=== PATIENT | female | born 2000 | race American Indian/Alaskan Native ===

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

== ENCOUNTER 2019-11-24 18:40 | Emergency (ER) | payer MEDICAID, OTHER ==
[2019-11-24 19:10] VITALS: BP 128/71; PULSE 92
== END 2019-11-24 19:00 | disposition left against medical advice (07) ==
LOC: DL.ED 18:40
DX: Z53.21 Procedure and treatment not carried out due to patient leaving prior to being seen by health care provider (principal)

== ENCOUNTER 2019-12-22 18:19 | Emergency (ER) | payer MEDICAID ==
[2019-12-22 19:18] VITALS: BP 112/59; PULSE 75
--- NOTE | 2019-12-22 19:31 | EDM.PDOC ---
ED HPI GENERAL MEDICAL PROBLEM - General Chief Complaint: Genitourinary Problem Stated Complaint: <20 WEEKS PREG/PEEING BLOOD Time Seen by Provider: 12/22/19 19:00 Source of Information: Reports: Patient History Limitations: Reports: No Limitations - History of Present Illness INITIAL COMMENTS - FREE TEXT/NARRATIVE: ED with c/o vaginal bleeding, passing clots intermittently when voiding. Lmp sometime in october. Positive test last week. . Some cramping. No vaginal discharge, no known fever or chills, . No nausea or vomiting - Related Data Allergies Allergy/AdvReac Type Severity Reaction Status Date / Time No Known Allergies Allergy Verified 12/22/19 19:13 Home Meds: Home Meds Citalopram Hydrobromide [Celexa] 20 mg PO DAILY 01/15/18 [History] Ferrous Sulfate 325 mg PO DAILY 01/15/18 [History] Lisdexamfetamine Dimesylate [Vyvanse] 10 mg PO DAILY 01/15/18 [History] #103/Iron Fumarate/Fa [ ] 1 each PO DAILY 01/15/18 [History] Acetaminophen [Tylenol] 650 mg PO Q4H PRN #30 tablet 01/16/18 [Rx] hydrOXYzine pamoate [Vistaril] 25 - 50 mg PO Q8H PRN #30 cap 01/16/18 [Rx] Acetaminophen [Tylenol] 650 mg PO Q6H PRN tablet 01/18/18 [Rx] Ibuprofen [Motrin] 800 mg PO Q8H PRN tablet 01/18/18 [Rx] Past Medical History - Past Health History Medical/Surgical History: Denies Medical/Surgical History HEENT History: Reports: None Cardiovascular History: Reports: None Respiratory History: Reports: None Gastrointestinal History: Reports: None Genitourinary History: Reports: None COMMUNICATIONS EDITOR History: Reports: Musculoskeletal History: Reports: None Neurological History: Reports: None Psychiatric History: Reports: Anxiety, Depression, Suicide Attempt, Suicidal Ideation Endocrine/Metabolic History: Reports: None Hematologic History: Reports: Anemia Immunologic History: Reports: None Oncologic (Cancer) History: Reports: None Dermatologic History: Reports: None - Infectious Disease History Infectious Disease History: Reports: None - Past Surgical History Head Surgeries/Procedures: Reports: None HEENT Surgical History: Reports: Other (See Below) Other HEENT Surgeries/Procedures: wisdom teeth extraction Social & Family History - Family History Family Medical History: Noncontributory Other Oncologic Family History: Mother Way[place] 2013, pt unsure of details - Caffeine Use Caffeine Use: Reports: Coffee, Energy Drinks, Soda - Sexual History Sexual History: Reports: None - Living Situation & Occupation Living situation: Reports: Other Occupation: Student ED ROS GENERAL - Review of Systems Review Of Systems: Comprehensive ROS is negative, except as noted in HPI. ED EXAM, RENAL/ - Physical Exam Exam: See Below Exam Limited By: No Limitations General Appearance: Alert, No Apparent Distress Eye Exam: Bilateral Eye: EOMI Ears: Normal External Exam, Normal TMs Nose: Normal Inspection Throat/Mouth: Normal Inspection Head: Atraumatic, Normocephalic Neck: Normal Inspection Respiratory/Chest: No Respiratory Distress, Lungs Clear, Normal Breath Sounds Cardiovascular: Normal Peripheral Pulses, Regular Rate, Rhythm GI/Abdominal: Normal Bowel Sounds, Soft. No: Distended (Female) Exam: No: Enlarged Uterus, Fundal Height Back Exam: Normal Inspection Neurological: Alert, Oriented, Normal Cognition Psychiatric: Anxious, Other (restless) Skin Exam: Warm, Dry, Intact, Normal Color Course - Vital Signs Last Recorded V/S: Last Vital Signs Temp 98.6 F 12/22/19 19:13 Pulse 75 12/22/19 19:13 Resp 16 12/22/19 19:13 BP 112/59 L 12/22/19 19:13 Pulse Ox 97 12/22/19 19:13 - Orders/Labs/Meds Labs: Laboratory Tests 12/22/19 12/22/19 12/22/19 Range/Units 18:23 18:23 18:23 WBC (5.0-10.0) 10^3/uL RBC (4.2-5.4) 10^6/uL Hgb (12.0-16.0) g/dL Hct (37.0-47.0) % MCV (80-100) fL MCH (27.0-34.0) pg MCHC (33.0-35.0) g/dL Plt Count (150-450) 10^3/uL Neut % (Auto) (42.2-75.2) % Lymph % (Auto) (20.5-50.1) % [place] % (Auto) (2-8) % Eos % (Auto) (1.0-3.0) % Baso % (Auto) (0.0-1.0) % Sodium (136-145) mmol/L Potassium (3.5-5.1) mmol/L Chloride (98-107) mmol/L Carbon Dioxide (21-32) mmol/L Anion Gap (7-13) mEq/L BUN (7-18) mg/dL Creatinine (0.55-1.02) mg/dL Est Cr Clr Drug Dosing mL/min Estimated GFR (MDRD) BUN/Creatinine Ratio (No establ ref range) Glucose (74-99) mg/dL Calcium (8.5-10.1) mg/dL Total Bilirubin (0.2-1.0) mg/dL AST (15-37) U/L ALT (14-59) U/L Alkaline Phosphatase (46-116) U/L Total Protein (6.4-8.2) g/dL Albumin (3.4-5.0) g/dL Globulin Albumin/Globulin Ratio HCG, Quant (0-6) mIU/mL Urine Color Yellow (YELLOW) Urine Appearance Slightly cloudy (CLEAR) Urine pH 6.5 (5.0-9.0) Ur Specific [place] 1.020 (1.005-1.030) Urine Protein Negative (NEGATIVE) Urine Glucose (UA) Negative (NEGATIVE) Urine Ketones Negative (NEGATIVE) Urine Occult Blood Trace-intact H (NEGATIVE) Urine Nitrite Negative (NEGATIVE) Urine Bilirubin Negative (NEGATIVE) Urine Urobilinogen 0.2 (0.2-1.0) mg/dL Ur Leukocyte Esterase Trace H (NEGATIVE) Urine RBC 0-5 /HPF Urine WBC 10-20 H (0-5/HPF) /HPF Ur Epithelial Cells Moderate H (NOT SEEN) /HPF Amorphous Sediment Rare (NOT SEEN) /HPF Urine Bacteria Few (0-FEW/HPF) /HPF Urine Mucus Few H (NOT SEEN) /LPF Urine HCG, Qual Positive Urine Opiates Screen Negative (NEGATIVE) Ur Oxycodone Screen Negative (NEGATIVE) Urine Methadone Screen Negative (NEGATIVE) Ur Barbiturates Screen Negative (NEGATIVE) U Tricyclic Antidepress Negative (NEGATIVE) Ur Phencyclidine Scrn Negative (NEGATIVE) Ur Amphetamine Screen Negative (NEGATIVE) U Methamphetamines Scrn Positive H (NEGATIVE) Urine MDMA Screen Negative (NEGATIVE) U Benzodiazepines Scrn Negative (NEGATIVE) Urine Cocaine Screen Negative (NEGATIVE) U Marijuana (THC) Screen Negative (NEGATIVE) 12/22/19 12/22/19 12/22/19 Range/Units 19:19 19:19 19:19 WBC 7.1 (5.0-10.0) 10^3/uL RBC 3.98 L (4.2-5.4) 10^6/uL Hgb 11.4 L D (12.0-16.0) g/dL Hct 34.9 L (37.0-47.0) % MCV 87.7 (80-100) fL MCH 28.6 (27.0-34.0) pg MCHC 32.7 L (33.0-35.0) g/dL Plt Count 234 D (150-450) 10^3/uL Neut % (Auto) 62.0 (42.2-75.2) % Lymph % (Auto) 26.0 (20.5-50.1) % [place] % (Auto) 9.3 H (2-8) % Eos % (Auto) 2.4 (1.0-3.0) % Baso % (Auto) 0.3 (0.0-1.0) % Sodium 137 (136-145) mmol/L Potassium 3.8 (3.5-5.1) mmol/L Chloride 104 (98-107) mmol/L Carbon Dioxide 26 (21-32) mmol/L Anion Gap 10.8 (7-13) mEq/L BUN 7 (7-18) mg/dL Creatinine 0.53 L (0.55-1.02) mg/dL Est Cr Clr Drug Dosing 128.28 mL/min Estimated GFR (MDRD) > 60 BUN/Creatinine Ratio 13.2 (No establ ref range) Glucose 77 (74-99) mg/dL Calcium 8.2 L (8.5-10.1) mg/dL Total Bilirubin 0.2 (0.2-1.0) mg/dL AST 9 L (15-37) U/L ALT 19 (14-59) U/L Alkaline Phosphatase 76 (46-116) U/L Total Protein 5.9 L (6.4-8.2) g/dL Albumin 3.2 L (3.4-5.0) g/dL Globulin 2.7 Albumin/Globulin Ratio 1.19 HCG, Quant [id number] H (0-6) mIU/mL Urine Color (YELLOW) Urine Appearance (CLEAR) Urine pH (5.0-9.0) Ur Specific [place] (1.005-1.030) Urine Protein (NEGATIVE) Urine Glucose (UA) (NEGATIVE) Urine Ketones (NEGATIVE) Urine Occult Blood (NEGATIVE) Urine Nitrite (NEGATIVE) Urine Bilirubin (NEGATIVE) Urine Urobilinogen (0.2-1.0) mg/dL Ur Leukocyte Esterase (NEGATIVE) Urine RBC /HPF Urine WBC (0-5/HPF) /HPF Ur Epithelial Cells (NOT SEEN) /HPF Amorphous Sediment (NOT SEEN) /HPF Urine Bacteria (0-FEW/HPF) /HPF Urine Mucus (NOT SEEN) /LPF Urine HCG, Qual Urine Opiates Screen (NEGATIVE) Ur Oxycodone Screen (NEGATIVE) Urine Methadone Screen (NEGATIVE) Ur Barbiturates Screen (NEGATIVE) U Tricyclic Antidepress (NEGATIVE) Ur Phencyclidine Scrn (NEGATIVE) Ur Amphetamine Screen (NEGATIVE) U Methamphetamines Scrn (NEGATIVE) Urine MDMA Screen (NEGATIVE) U Benzodiazepines Scrn (NEGATIVE) Urine Cocaine Screen (NEGATIVE) U Marijuana (THC) Screen (NEGATIVE) Departure - Departure Time of Disposition: 21:15 Disposition: Against Medical Advice 07 Condition: Good Clinical Impression: First-trimester bleeding, Positive urine drug screen - Discharge Information *PRESCRIPTION DRUG MONITORING PROGRAM REVIEWED*: No *COPY OF PRESCRIPTION DRUG MONITORING REPORT IN PATIENT JOSE ALBERTO: No Forms: ED Department Discharge
[2019-12-22 19:45] LABS: ANION GAP 10.8 mEq/L (7-13); CHLORIDE,CL 104 mmol/L (98-107); SODIUM,NA 137 mmol/L (136-145)
--- NOTE | 2019-12-22 21:29 | US ---
PROCEDURE INFORMATION: Exam: US , Limited Exam date and time: 12/22/2019 8:47 PM Age: 19 years old Clinical indication: Lmp or gestational age (in weeks): 7 wks, 5 days; Other: Bleeding; ; Additional info: Spotting, cramping unsure accurate dates TECHNIQUE: Imaging protocol: Real-time ultrasound of the maternal uterus with image documentation. Exam focused on the clinical indication. COMPARISON: No relevant prior studies available. FINDINGS: There is single live intrauterine with embryonic heart rate 1 5 0 bpm. [place]-rump length measures 1.4 cm which dates at 7 week 5 day. There is small subchorionic hemorrhage along upper uterus. No adnexal masses or free fluid. IMPRESSION: Single live intrauterine approximately 7 week 5 day gestational age. Small subchorionic hemorrhage
== END 2019-12-22 21:13 | disposition left against medical advice (07) ==
LOC: DL.ED 18:19
DX: O20.9 Hemorrhage in early pregnancy, unspecified (principal); O99.89 Other specified diseases and conditions complicating pregnancy, childbirth and the puerperium; R82.998 Other abnormal findings in urine; O99.341 Other mental disorders complicating pregnancy, first trimester; F41.9 Anxiety disorder, unspecified; F32.9 Major depressive disorder, single episode, unspecified; Z79.899 Other long term (current) drug therapy; Z3A.01 Less than 8 weeks gestation of pregnancy
CPT/HCPCS: 36415; 76815; 80053; 80305-QW; 81001; 81025; 84702; 85025; 87086; 99283; 99284-25

== ENCOUNTER 2020-01-25 02:30 | Emergency (ER) | payer MEDICAID ==
[2020-01-25 02:54] VITALS: BP 135/65; PULSE 144
--- NOTE | 2020-01-25 03:01 | EDM.PDOC ---
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 The patient reports her pain started about 50 minutes prior to her arrival in the ED. The patient reports she has been feeling like she is "burning up inside" today. The patient reports she is approximately [address] Negron for her care. The patient reports she did see Dr. Negron 3-4 days ago and "everything was fine". The patient denies any drug or alcohol use. Onset: Today Onset Date: 01/25/20 Onset Time: 02:00 Duration: Intermittent Location: Reports: Abdomen Quality: Reports: Ache, Sharp Severity: Moderate Improves with: Reports: None Worsens with: Reports: None Context: Reports: Other Associated Symptoms: Reports: No Other Symptoms Epigastric Pain Score (Numeric/FACES): 8 - Related Data Allergies Allergy/AdvReac Type Severity Reaction Status Date / Time No Known Allergies Allergy Verified 12/22/19 19:13 Home Meds: Home Meds #103/Iron Fumarate/Fa [ ] 1 each PO DAILY 01/15/18 [History] Acetaminophen [Tylenol] 650 mg PO Q4H PRN #30 tablet 01/16/18 [Rx] Acetaminophen [Tylenol] 650 mg PO Q6H PRN tablet 01/18/18 [Rx] Ibuprofen [Motrin] 800 mg PO Q8H PRN tablet 01/18/18 [Rx] Past Medical History - Past Health History Medical/Surgical History: Denies Medical/Surgical History HEENT History: Reports: None Cardiovascular History: Reports: None Respiratory History: Reports: None Gastrointestinal History: Reports: None Genitourinary History: Reports: None FISH NET STRINGER History: Reports: Other FISH NET STRINGER History: Musculoskeletal History: Reports: None Neurological History: Reports: None Psychiatric History: Reports: Anxiety, Depression, Suicide Attempt, Suicidal Ideation Endocrine/Metabolic History: Reports: None Hematologic History: Reports: Anemia Immunologic History: Reports: None Oncologic (Cancer) History: Reports: None Dermatologic History: Reports: None - Infectious Disease History Infectious Disease History: Reports: None - Past Surgical History Head Surgeries/Procedures: Reports: None HEENT Surgical History: Reports: Other (See Below) Other HEENT Surgeries/Procedures: wisdom teeth extraction Social & Family History - Family History Family Medical History: Noncontributory Other Oncologic Family History: Mother Maximo 2014, pt unsure of details - Caffeine Use Caffeine Use: Reports: Coffee, Energy Drinks, Soda - Sexual History Sexual History: Reports: None - Living Situation & Occupation Living situation: Reports: Other Occupation: Student ED ROS GENERAL - Review of Systems Review Of Systems: Comprehensive ROS is negative, except as noted in HPI. ED EXAM, GI/ABD - Physical Exam Exam: See Below Exam Limited By: No Limitations General Appearance: Alert, WD/WN, Anxious, Moderate Distress Eyes: Bilateral: Normal Appearance, EOMI Ears: Normal External Exam, Normal Canal, Hearing Grossly Normal, Normal TMs Nose: Normal Inspection, Normal Mucosa, No Blood Throat/Mouth: Normal Inspection, Normal Lips, Normal Teeth, Normal Gums, Normal Oropharynx, Normal Voice, No Airway Compromise Head: Atraumatic, Normocephalic Neck: Normal Inspection, Supple, Non-Tender, Full Range of Motion Respiratory/Chest: No Respiratory Distress, Lungs Clear, Normal Breath Sounds, No Accessory Muscle Use, Chest Non-Tender Cardiovascular: Normal Peripheral Pulses, No Edema, No Gallop, No JVD, No Murmur, No Rub, Tachycardia GI/Abdominal Exam: Normal Bowel Sounds, No Organomegaly, No Distention, No Abnormal Bruit, No Mass, Pelvis Stable, Tender (diffuse ) (Female) Exam: Deferred Rectal (Female) Exam: Deferred Back Exam: Normal Inspection, Full Range of Motion, NT Extremities: Normal Inspection, Normal Range of Motion, Non-Tender, Normal Capillary Refill, No Pedal Edema Neurological: Alert, Oriented, CN II-XII Intact, Normal Cognition, Normal Gait, Normal Reflexes, No Motor/Sensory Deficits Psychiatric: Anxious Skin Exam: Warm, Dry, Intact, Normal Color, No Rash Lymphatic: No Adenopathy Course - Vital Signs Last Recorded V/S: Last Vital Signs Temp 36.3 C 01/25/20 02:52 Pulse 144 H 01/25/20 02:52 Resp 20 01/25/20 02:52 BP 135/65 01/25/20 02:52 Pulse Ox 97 01/25/20 02:52 - Orders/Labs/Meds Orders: Active Orders 24 hr Category Date Time Status DRUG SCREEN URINE BIORAD [URCHEM] Stat Lab 01/25/20 02:37 Ordered HCG QUALITATIVE,URINE [URCHEM] Stat Lab 01/25/20 02:37 Ordered HCG QUANTITATIVE [CHEM] Stat Lab 01/25/20 02:45 Received UA W/GILBERTO RFLX IF INDICATED [URIN] Stat Lab 01/25/20 02:37 Ordered Labs: Laboratory Tests 01/25/20 01/25/20 Range/Units 02:45 02:45 WBC 10.8 H (5.0-10.0) 10^3/uL RBC 4.18 L (4.2-5.4) 10^6/uL Hgb 11.5 L (12.0-16.0) g/dL Hct 34.3 L (37.0-47.0) % MCV 82.1 D (80-100) fL MCH 27.5 (27.0-34.0) pg MCHC 33.5 (33.0-35.0) g/dL Plt Count 337 D (150-450) 10^3/uL Neut % (Auto) 63.2 (42.2-75.2) % Lymph % (Auto) 25.2 (20.5-50.1) % Crawford % (Auto) 10.5 H (2-8) % Eos % (Auto) 0.7 L (1.0-3.0) % Baso % (Auto) 0.4 (0.0-1.0) % Sodium 136 (136-145) mmol/L Potassium 3.5 (3.5-5.1) mmol/L Chloride 101 (98-107) mmol/L Carbon Dioxide 23 (21-32) mmol/L Anion Gap 15.5 H (7-13) mEq/L BUN 10 (7-18) mg/dL Creatinine 0.63 (0.55-1.02) mg/dL Est Cr Clr Drug Dosing 102.00 mL/min Estimated GFR (MDRD) > 60 BUN/Creatinine Ratio 15.9 (No establ ref range) Glucose 93 (74-99) mg/dL Calcium 8.5 (8.5-10.1) mg/dL Total Bilirubin 0.4 (0.2-1.0) mg/dL AST 21 (15-37) U/L ALT 24 (14-59) U/L Alkaline Phosphatase 86 (46-116) U/L Total Protein 7.4 (6.4-8.2) g/dL Albumin 3.5 (3.4-5.0) g/dL Globulin 3.9 Albumin/Globulin Ratio 0.9 Departure - Departure Time of Disposition: 03:23 Disposition: Against Medical Advice 07 Condition: Undetermined Clinical Impression: Abdominal pain Qualifiers: Abdominal location: unspecified location Qualified Code(s): R10.9 - Unspecified abdominal pain - Discharge Information *PRESCRIPTION DRUG MONITORING PROGRAM REVIEWED*: Not Applicable *COPY OF PRESCRIPTION DRUG MONITORING REPORT IN PATIENT JOSE ALBERTO: Not Applicable Care Plan Goals: After being in the ED for a short amount of time, the patient wanted to go outside to see her boyfriend. The patient did not return for any additional care or assessment. Sepsis Event Note (ED) - Evaluation Sepsis Screening Result: No Definite Risk - Focused Exam Vital Signs: Vital Signs Temp Pulse Resp BP Pulse Ox 01/25/20 02:52 36.3 C 144 H 20 135/65 97 - My Orders Last 24 Hours: My Active Orders 01/25/20 02:37 DRUG SCREEN URINE BIORAD [URCHEM] Stat HCG QUALITATIVE,URINE [URCHEM] Stat UA W/GILBERTO RFLX IF INDICATED [URIN] Stat 01/25/20 02:45 HCG QUANTITATIVE [CHEM] Stat - Assessment/Plan Last 24 Hours: My Active Orders 01/25/20 02:37 DRUG SCREEN URINE BIORAD [URCHEM] Stat HCG QUALITATIVE,URINE [URCHEM] Stat UA W/GILBERTO RFLX IF INDICATED [URIN] Stat 01/25/20 02:45 HCG QUANTITATIVE [CHEM] Stat
[2020-01-25 03:10] LABS: ANION GAP 15.5 mEq/L (7-13); CHLORIDE,CL 101 mmol/L (98-107); SODIUM,NA 136 mmol/L (136-145)
== END 2020-01-25 03:25 | disposition left against medical advice (07) ==
LOC: DL.ED 02:30
DX: O99.89 Other specified diseases and conditions complicating pregnancy, childbirth and the puerperium (principal); R10.84 Generalized abdominal pain; O99.011 Anemia complicating pregnancy, first trimester; Z3A.13 13 weeks gestation of pregnancy
CPT/HCPCS: 36415; 80053; 84702; 85025; 99284

== ENCOUNTER 2022-06-01 04:14 | Emergency (ER) | payer MEDICAID ==
[2022-06-01 04:48] LABS: AMPHETAMINES,URINE POSITIVE (NEGATIVE); BARBITURATES,URINE NEGATIVE (NEGATIVE); BENZODIAZEPINE,URINE NEGATIVE (NEGATIVE); MDMA (ECSTASY), URINE NEGATIVE (NEGATIVE); METHADONE,URINE NEGATIVE (NEGATIVE); METHAMPHETAMINES,URINE POSITIVE (NEGATIVE); OPIATES,URINE NEGATIVE (NEGATIVE); OXYCODONE,URINE NEGATIVE (NEGATIVE); PHENCYCLIDINE,URINE NEGATIVE (NEGATIVE); TCA,URINE NEGATIVE (NEGATIVE)
[2022-06-01 05:32] VITALS: BP 111/79; PULSE 148
== END 2022-06-01 05:35 ==
LOC: DL.ED 04:14
DX: O9A.219 Injury, poisoning and certain other consequences of external causes complicating pregnancy, unspecified trimester (principal); T19.2XXA Foreign body in vulva and vagina, initial encounter; O99.320 Drug use complicating pregnancy, unspecified trimester; F15.10 Other stimulant abuse, uncomplicated
CPT/HCPCS: 80305-QW; 81001; 81025; 87086; 99283

== ENCOUNTER 2022-06-05 19:37 | Emergency (ER) | payer MEDICAID ==
[2022-06-05] MEDS ORDERED: metroNIDAZOLE 250 MG Tab PO ONE (19:38)
[2022-06-05 19:56] VITALS: BP 111/63; PULSE 88
[2022-06-05] MEDS: metroNIDAZOLE 250 MG Tab PO ONE (21:23)
[2022-06-05] MEDS: metroNIDAZOLE 250 MG Tab ONE (21:47)
[2022-06-08 11:46] LABS: C.TRACHOMATIS BY TMA Positive (Negative); N.GONORRHOEAE BY TMA Negative (Negative)
== END 2022-06-05 21:47 ==
LOC: DL.ED 19:37
DX: O23.592 Infection of other part of genital tract in pregnancy, second trimester (principal); B96.89 Other specified bacterial agents as the cause of diseases classified elsewhere; Z3A.15 15 weeks gestation of pregnancy
CPT/HCPCS: 81001; 87086; 87210; 87491; 87591; 99284; A9270